=== PATIENT | female | born 1995 | race Hispanic/Latino ===

== ENCOUNTER 2023-02-28 14:24 | Emergency (ER) | payer OTHER, SELFPAY ==
[2023-02-28 14:56] LABS: Absolute Lymphocytes (CBC) 1.4 K/uL (0.7-4.9); Lymphocytes % 9.8 % (15.3-44.8); MCV 88.2 fL (80-100); MPV 8.9 fL (7.6-11.3); Platelets 281 thou/uL (152-406); RBC Red Blood Cell Count 4.42 M/uL (3.86-4.86)
[2023-02-28 15:00] LABS: Protime INR 1.24
[2023-02-28] MEDS ORDERED: NA CHLORIDE 0.9% 1,000 ML ONE ×2 (15:01→17:18)
[2023-02-28] MEDS ORDERED: LORazepam 2 MG/ML VIAL ONE (15:12)
[2023-02-28 15:20] LABS: White Blood Cell Scan OK (OK)
[2023-02-28 15:21] LABS: Blood Morphology Comment NOT SEEN (NOT SEEN); Platelet Estimate ADEQ
[2023-02-28 15:26] LABS: Specific Gravity > 1.030 (1.005-1.030)
[2023-02-28 15:27] LABS: Specific Gravity > 1.030 (1.005-1.030); Urine Bacteria <20 /HPF (<20); Urine Bilirubin NEGATIVE (Negative); Urine Blood 2+ (Negative); Urine Clarity Turbid (Clear); Urine Color Yellow (Yellow); Urine Glucose TRACE (Negative); Urine Mucus 2+ /HPF (None Seen); Urine Protein 2+ (Negative); Urine Urobilinogen Normal (Normal); Urine pH 5.5 (5.0-7.0)
[2023-02-28 15:29] LABS: ALT/SGPT 43 U/L (13-56); AST/SGOT 34 U/L (15-37); Albumin 4.2 g/dL (3.4-5.0); Alkaline Phosphatase 68 U/L (45-117); BUN Blood Urea Nitrogen 21 mg/dL (7-18); Bicarbonate 20 mEq/L (21-32); Bilirubin Direct 0.3 mg/dL (0-0.2); Bilirubin Indirect, Calculated 0.7 mg/dL (0.2-0.8); Glomerular Filtration Rate 63 ml/min (=/>90); Glucose Level 148 mg/dL (74-106); Potassium 3.3 mEq/L (3.5-5.1); Protein, Total 8.2 g/dL (6.4-8.2); Sodium Level 140 mEq/L (136-145)
[2023-02-28 15:34] LABS: Barbiturates NEGATIVE (NEGATIVE); Benzodiazepines POSITIVE (NEGATIVE); Cocaine NEGATIVE (NEGATIVE); METHAMPHETAM NEGATIVE (NEGATIVE); Methadone NEGATIVE (NEGATIVE); Opiates NEGATIVE (NEGATIVE); Phencyclidine NEGATIVE (NEGATIVE); THC Cannibis NEGATIVE (NEGATIVE)
--- NOTE | 2023-02-28 15:50 | RAD REPORT ---
EXAM DESCRIPTION: CT - Head Brain Wo Cont - 02/28/2023 3:43 pm CLINICAL HISTORY: CONFUSED Headache, drowsiness COMPARISON: <Comparisons> TECHNIQUE: All CT scans are performed using dose optimization technique as appropriate and may inclu de automated exposure control or mA/KV adjustment according to patient size. FINDINGS: No intracranial hemorrhage, hydrocephalus or extra-axial fluid collection.No areas of brai n edema or evidence of midline shift. The paranasal sinuses and mastoids are clear. The calvarium is intact. IMPRESSION: No acute intracranial abnormality.
[2023-02-28 16:19] LABS: SARS-CoV-2 Antigen Rapid Res Negative (Negative)
--- NOTE | 2023-02-28 17:03 | RAD REPORT ---
EXAM DESCRIPTION: RAD - Chest Single View - 02/28/2023 4:55 pm CLINICAL HISTORY: FEVER Chest pain. COMPARISON: <Comparisons> FINDINGS: Portable technique limits examination quality. The lungs are grossly clear. The heart is normal in size. No displaced fractures. IMPRESSION: No acute intrathoracic process suspected.
[2023-02-28] MEDS ORDERED: POTASSIUM CL SA 10 MEQ TAB PO ONE (23:07)
[2023-03-01 00:10] LABS: Potassium 3.6 mEq/L (3.5-5.1)
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
[2023-03-01 08:54] VITALS: BP 133/78; TEMP 97.9; O2SAT 100
--- NOTE | 2023-03-03 13:39 | EKG ---
Test Date: 2023-02-28 Test Time: 15:14:26 [employer]ing Yard Supervisor: NICOLAS MEASUREMENT RESULTS: Intervals: Rate: 106 AK: 136 QRSD: 90 QT: 328 QTc: 435 [place]: P: 79 AK: 136 QRS: 59 T: 54 INTERPRETIVE STATEMENTS: Sinus tachycardia Otherwise normal ECG Compared to ECG 04/26/2013 16:51:05 Sinus rhythm no longer present Electronically Signed On 03-03-23 13:30:00 DIGITAL MEDIA MANAGER by Enoc Calzada
== END 2023-03-01 08:13 ==
LOC: ER 14:24
DX: F29 Unspecified psychosis not due to a substance or known physiological condition (principal); E86.0 Dehydration
CPT/HCPCS: 36415; 51702; 70450; 71045; 80048; 80076; 80143; 80179; 80307; 81001; 81025; 82077; 83605; 85025; 85610; 85730; 87804; 87811; 93005; 96361; 96374; 99285; J7030

== ENCOUNTER → 2023-04-20 | Emergency (ER) | payer SELFPAY ==
[~2023-04-20] MED LIST: HALOPERIDOL LACT 5 MG/ML INJ ONE; LORazepam 2 MG/ML VIAL ONE; POTASSIUM 25 MEQ EFFERV TAB ONE; Ringers Lactate 1,000 ML IV ONE
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
[2023-04-20 04:05] LABS: Absolute Lymphocytes (CBC) 1.7 K/uL (0.7-4.9); Hematocrit 39.4 % (36.0-45.0); Lymphocytes % 20.3 % (15.3-44.8); MPV 8.7 fL (7.6-11.3); Platelets 296 thou/uL (152-406); Protime INR 1.3; RBC Red Blood Cell Count 4.48 M/uL (3.86-4.86)
[2023-04-20 04:15] LABS: ALT/SGPT 58 U/L (13-56); AST/SGOT 27 U/L (15-37); Albumin 4.2 g/dL (3.4-5.0); Alkaline Phosphatase 74 U/L (45-117); BUN Blood Urea Nitrogen 11 mg/dL (7-18); Bicarbonate 19 mEq/L (21-32); Bilirubin Direct 0.2 mg/dL (0-0.2); Bilirubin Indirect, Calculated 0.4 mg/dL (0.2-0.8); Bilirubin Total 0.6 mg/dL (0.2-1.0); Glomerular Filtration Rate 98 ml/min (=/>90); Glucose Level 133 mg/dL (74-106); Sodium Level 137 mEq/L (136-145)
[2023-04-20 04:19] LABS: Specific Gravity 1.029 (1.005-1.030)
[2023-04-20 04:30] LABS: Barbiturates NEGATIVE (NEGATIVE); Benzodiazepines NEGATIVE (NEGATIVE); Cocaine NEGATIVE (NEGATIVE); METHAMPHETAM NEGATIVE (NEGATIVE); Methadone NEGATIVE (NEGATIVE); Opiates NEGATIVE (NEGATIVE); Phencyclidine NEGATIVE (NEGATIVE); THC Cannibis NEGATIVE (NEGATIVE)
[2023-04-20 12:17] VITALS: BP 133/82; TEMP 97.9; O2SAT 95
--- NOTE | 2023-04-20 16:51 | EKG ---
Test Date: 2023-04-20 Test Time: 03:45:02 Custodian Blood Bank: [facility] MEASUREMENT RESULTS: Intervals: Rate: 111 RI: 148 QRSD: 92 QT: 340 QTc: 462 [place]: P: 82 RI: 148 QRS: 73 T: 66 INTERPRETIVE STATEMENTS: Sinus tachycardia Incomplete right bundle branch block Borderline ECG Compared to ECG 02/28/2023 15:14:26 Incomplete right bundle-branch block now present Electronically Signed On 04-20-23 16:51:02 AUTOMOTIVE CONSULTANT by Enoc Calzada
== END ==
LOC: ER 01:09
DX: F29 Unspecified psychosis not due to a substance or known physiological condition (principal)
CPT/HCPCS: 36415; 80048; 80076; 80143; 80179; 80307; 81025; 82077; 85025; 85610; 85730; 93005; 96372; 99285; J1630; J7120